=== PATIENT | female | born 2000 | race African-American/Black ===

== ENCOUNTER 2019-08-07 08:46 | Inpatient (IN) ==
[2019-08-07] MEDS ORDERED: LACTATED RINGERS 500 ML IV PRN (08:57)
[2019-08-07] MEDS ORDERED: BUTORPHANOL 2 MG/ML VIAL IV PRN (08:57)
[2019-08-07] MEDS ORDERED: OXYTOCIN/LR 20 UNIT/1,000 ML BAG IV PRN (08:57)
[2019-08-07] MEDS ORDERED: MEPERIDINE 50 MG/1 ML VIAL IV PRN (08:57)
[2019-08-07] MEDS ORDERED: ONDANSETRON 4 MG/2 ML VIAL IV PRN ×2 (08:57→22:39)
[2019-08-07] MEDS ORDERED: diphenhydrAMINE 50 MG/1 ML VIAL IV PRN ×2 (09:02)
[2019-08-07] MEDS ORDERED: FAMOTIDINE 20 MG/2 ML VIAL IV ONE (09:02)
[2019-08-07] MEDS ORDERED: NALOXONE 0.4 MG/ML VIAL IV PRN (09:02)
[2019-08-07] MEDS ORDERED: CITRIC ACID/SODIUM CITRATE 30 ML UDCUP PO ONE (09:02)
[2019-08-07] MEDS ORDERED: PROMETHAZINE 25 MG/1 ML VIAL IM ONE (09:02)
[2019-08-07] MEDS ORDERED: LACTATED RINGERS 1,000 ML IV ONE (09:02)
[2019-08-07] MEDS ORDERED: hydrOXYzine HCL 25 MG/1 ML VIAL IM PRN (09:02)
[2019-08-07] MEDS ORDERED: ePHEDrine 50 MG/ML AMP IV PRN (09:02)
[2019-08-07] MEDS ORDERED: fentaNYL 2 MCG/ROPIV 0.2% EPID 100 ML EPIDURAL SCH (09:30)
[2019-08-07] MEDS: LACTATED RINGERS 1,000 ML IV SCH ×2 (09:32→16:11)
[2019-08-07 09:41] LABS: Basophils % 0.2 % (0.0-0.8); Hematocrit 29.3 VOL% (35.7-47.0); Hemoglobin 8.6 GM/DL (12.0-16.0); Immature Granulocytes % 1.2 %; Immature Granulocytes Absolute 0.19 #; Lymphocytes # 1.2 10*3/uL (1.4-4.0); Lymphocytes % 7.3 % (21.3-54.2); Mean Corpuscular HGB Conc 29.4 GM/DL (32-36); Mean Corpuscular Volume 83.5 FL (87-102); Mean Platelet Volume 11.7 FL (9.6-12.0); Monocytes % 6.2 % (1.7-12.7); Neutrophils % 85.1 % (38.7-73.9); Platelet Count 262 T/CUMM (130-400); Red Blood Count 3.51 MC/CUMM (3.8-5.5); White Blood Count 15.8 T/CUMM (4-12)
[2019-08-07] MEDS ORDERED: AMPICILLIN INJ 2,000 MG in SODIUM CHLORIDE 0.9% 100 ML IV ONE (14:33)
[2019-08-07] MEDS ORDERED: ACETAMINOPHEN 500 MG TABLET PO ONE ×2 (14:35→22:16)
[2019-08-07] MEDS: GENTAMICIN INJ 330 MG in SODIUM CHLORIDE 0.9% 100 ML IV SCH (16:40)
[2019-08-07 16:47] LABS: Apearance,Urine CLEAR (Clear); Bilirubin,Urine Negative (Negative); Blood, Urine Negative (Negative); Glucose,Urine (UA) Negative (Negative); Ketones,Urine 20 mg/dL (Negative); Nitrite,Urine Negative (Negative); Protein,Urine Negative; RBC,Urine <1 /HPF (0-4); Urine Color Yellow (Yellow); Urine Specific Gravity 1.003 (1.001-1.035); Urine Urobilinogen < 2.0 EU/DL (0.2-1.0); WBC,Urine <1 /HPF (0-6)
[2019-08-07] MEDS ORDERED: AMPICILLIN INJ 1,000 MG in SODIUM CHLORIDE 0.9% 100 ML IV SCH (18:30)
[2019-08-07] MEDS ORDERED: LIDOCAINE 1% 50 ML VIAL ONE (22:04)
[2019-08-07] MEDS ORDERED: BISACODYL 10 MG SUPP RECTAL PRN (22:39)
[2019-08-07] MEDS ORDERED: LANOLIN 50% CREAM 0.3 OZ TUBE TOP PRN (22:39)
[2019-08-07] MEDS ORDERED: BENZOCAINE 20%/MENTHOL 0.5% SPRAY 56 GM CAN TOP PRN (22:39)
[2019-08-07] MEDS ORDERED: HYDROCORTISONE 2.5% RECTAL CREAM 30 GM TUBE TOP PRN (22:39)
[2019-08-07] MEDS ORDERED: ACETAMINOPHEN 325 MG TABLET PO PRN (22:39)
[2019-08-07] MEDS ORDERED: WITCH HAZEL PADS 100/JAR TOP PRN (22:39)
[2019-08-07] MEDS ORDERED: oxyCODONE/ACETAMINOPHEN 5-325 MG TABLET PO PRN (22:39)
[2019-08-07] MEDS ORDERED: OXYTOCIN/LR 20 UNIT/1,000 ML BAG IV ONE (22:39)
[2019-08-08 03:17] LABS: Basophils # 0.1 10*3/uL (0.0-0.2); Basophils % 0.2 % (0.0-0.8); Eosinophils % 0.1 % (0.00-10.9); Hematocrit 23.3 VOL% (35.7-47.0); Hemoglobin 7.1 GM/DL (12.0-16.0); Immature Granulocytes % 2.9 %; Immature Granulocytes Absolute 1.04 #; Lymphocytes # 0.9 10*3/uL (1.4-4.0); Lymphocytes % 2.5 % (21.3-54.2); Mean Corpuscular HGB Conc 30.5 GM/DL (32-36); Mean Corpuscular Volume 81.5 FL (87-102); Mean Platelet Volume 11.9 FL (9.6-12.0); Monocytes % 7.4 % (1.7-12.7); Neutrophils % 86.9 % (38.7-73.9); Platelet Count 211 T/CUMM (130-400); Red Blood Count 2.86 MC/CUMM (3.8-5.5); Red Cell Distribution Width 16.3 % (9.3-17.3); White Blood Count 35.7 T/CUMM (4-12)
[2019-08-08] MEDS: AMPICILLIN INJ 2,000 MG in SODIUM CHLORIDE 0.9% 100 ML IV SCH ×5 (03:40→23:05)
[2019-08-08] MEDS: IBUPROFEN 800 MG TABLET PO PRN ×2 (03:55→22:02)
[2019-08-08] MEDS: oxyCODONE/ACETAMINOPHEN 5-325 MG TABLET PO PRN ×2 (04:01→22:02)
[2019-08-08 04:20] LABS: Band Neutrophils 1 % (0-10); Lymphocytes 4 % (20-55); Segmented Neutrophils 90 % (50-85); Total Cells Counted 100
[2019-08-08 04:21] LABS: Hypochromasia 2+; Platelet Estimate Adequate
[2019-08-08] MEDS: DOCUSATE SODIUM 100 MG CAPSULE PO SCH ×2 (08:34→21:03)
[2019-08-08] MEDS: FERROUS SULFATE 325 MG TABLET PO SCH ×3 (08:35→21:03)
[2019-08-08] MEDS ORDERED: FERROUS SULFATE 325 MG TABLET PO SCH (09:00)
[2019-08-08] MEDS: GENTAMICIN INJ 330 MG in SODIUM CHLORIDE 0.9% 100 ML IV SCH (18:00)
[2019-08-09 03:11] LABS: Basophils % 0.2 % (0.0-0.8); Eosinophils # 0.1 10*3/uL (0.0-0.87); Eosinophils % 0.3 % (0.00-10.9); Hematocrit 20.9 VOL% (35.7-47.0); Immature Granulocytes % 1.8 %; Immature Granulocytes Absolute 0.42 #; Lymphocytes # 3.3 10*3/uL (1.4-4.0); Lymphocytes % 13.9 % (21.3-54.2); Mean Corpuscular HGB Conc 29.7 GM/DL (32-36); Mean Corpuscular Volume 82.6 FL (87-102); Mean Platelet Volume 12.1 FL (9.6-12.0); Monocytes % 6.8 % (1.7-12.7); Platelet Count 199 T/CUMM (130-400); Red Blood Count 2.53 MC/CUMM (3.8-5.5); Red Cell Distribution Width 16.1 % (9.3-17.3); White Blood Count 23.6 T/CUMM (4-12)
[2019-08-09 03:15] LABS: Hemoglobin 6.2 GM/DL (12.0-16.0)
[2019-08-09 04:13] LABS: Anisocytosis 1+; Band Neutrophils 1 % (0-10); Eosinophils 1 % (0-10); Lymphocytes 10 % (20-55); Microcytosis 1+; Segmented Neutrophils 86 % (50-85); Total Cells Counted 100
[2019-08-09 04:14] LABS: Platelet Estimate Normal
[2019-08-09] MEDS: AMPICILLIN INJ 2,000 MG in SODIUM CHLORIDE 0.9% 100 ML IV SCH (04:51)
[2019-08-09 07:34] VITALS: BP 100/52
== END 2019-08-09 11:25 | disposition home or self-care (01) | DRG 805 ==
LOC: N.LDOUT 08:46 → N.LD 08:53 → N.OB 08-08 02:52
PROVIDERS: ADMIT Obstetrics & Gynecology; ATTEND Obstetrics & Gynecology